=== PATIENT | male | born 1950 | race Caucasian/White ===

== ENCOUNTER 2022-02-01 06:19 | Day surgery (SDC) | payer OTHER ==
--- NOTE | 2022-01-29 11:26 | RAD REPORT ---
EXAM DESCRIPTION: RAD - Chest Pa And Lat (2 Views) - 01/29/2022 10:48 am CLINICAL HISTORY: Pre op pending heart catheterization COMPARISON: Portable 06/20/2014 TECHNIQUE: Frontal and lateral views of the chest were obtained. FINDINGS: The lungs are clear of an acute infiltrate. The interstitial pattern matches comparison. S ternotomy wires are in place. Heart size is normal and central vasculature is within normal limits. No pleural effusion or pneumothorax seen. No acute bony finding noted. No aortic abnormality. No significant change from comparison study. IMPRESSION: No acute cardiopulmonary process.
[2022-01-29 11:49] LABS: Absolute Lymphocytes (CBC) 1.4 K/uL (0.7-4.9); Hematocrit 44.6 % (39.6-49.0); Lymphocytes % 21.7 % (15.3-44.8); MCV 91.4 fL (80-100); MPV 8.4 fL (7.6-11.3); RBC Red Blood Cell Count 4.88 M/uL (4.33-5.43)
[2022-01-29 11:54] LABS: Protime INR 1.07
[2022-01-29 12:02] LABS: Potassium 3.9 mmol/L (3.5-5.1)
--- NOTE | 2022-01-30 19:13 | EKG ---
Test Date: 2022-01-29 Test Time: 10:24:20 Talent Development Specialist: MALICK MEASUREMENT RESULTS: Intervals: Rate: 41 PA: 206 QRSD: 92 QT: 472 QTc: 389 [place]: P: 64 PA: 206 QRS: 48 T: 104 INTERPRETIVE STATEMENTS: Marked sinus bradycardia with premature atrial complexes Possible Lateral infarct, age undetermined Abnormal ECG Compared to ECG 06/20/2014 14:37:23 Atrial premature complex(es) now present Myocardial infarct finding now present Electronically Signed On 01-30-22 19:10:33 EXECUTIVE SECRETARY SOCIAL WELFARE by Jose Elias Whitehead
[2022-02-01] MEDS ORDERED: HEPA 1000U/500MLS 2,000 UNIT/1,000 ML BAG IV ONE (06:26)
[2022-02-01] MEDS ORDERED: LIDOCAINE 1% 20 ML MDV ONE (06:26)
[2022-02-01] MEDS ORDERED: NA CHLORIDE 0.9% 500 ML ONE (06:52)
[2022-02-01 06:59] VITALS: TEMP 98
[2022-02-01] MEDS ORDERED: MIDAZOLAM HCL 2 MG/2 ML INJ ONE (07:05)
[2022-02-01] MEDS ORDERED: FENTANYL CITR 100 MCG/2 ML ONE (07:05)
[2022-02-01] MEDS ORDERED: NITROGLYCERIN 100 MCG/ML SYR (for cath lab use only) IV ONE (07:06)
[2022-02-01] MEDS ORDERED: NITROGLYCERIN/D5W 25 MG/250 ML BTL IV ONE (07:06)
[2022-02-01] MEDS ORDERED: ATROPINE SULF 1 MG/10 ML SYR IV ONE (07:06)
[2022-02-01] MEDS ORDERED: NA CHLORIDE 0.9% 0 ML IV ONE (07:06)
[2022-02-01] MEDS ORDERED: METHYLPREDNISOLONE 125 MG INJ ONE (07:16)
[2022-02-01] MEDS ORDERED: DIPHENHYDRAMINE 50 MG/ML VIAL ONE (07:16)
[2022-02-01 15:31] VITALS: BP 157/81; O2SAT 96
--- NOTE | 2022-02-01 19:12 | OP ---
Surgeon: Jose Elias Whitehead MD Wash Helper: Ms. Lucia Acosta. Procedures: Left heart catheterization, selective coronary arteriogram, common femoral artery angiog vera, vein graft injection, and LEOS injection. Indication: Coronary artery disease, status post CABG with unstable angina. Procedure In Detail: In the laboratory director, the patient was prepped in routine sterile fashion and draped. He was given Solu-Medrol and Benadryl because of iodine allergy. A 6-Nepalese sheath introduced in t he right common femoral artery successfully using the Seldinger technique and 10 cc of Xylocaine. An giography there was normal. Angio-Seal was used to close the case. Ros catheter left and right were used to do the heart catheterization. He was found to have 100% LAD with a patent LEOS to the L AD. He had an 80% ostial circumflex, 70% distal circumflex. There was a vein graft that was patent to the OM. His RCA was normal except for some moderate plaquing. There was a graft to the RCA that was occluded. I am not really so sure why the RCA was bypassed to start off with. The patient alexa ated the procedure well. A 6-Nepalese sheath and catheters, no complications. Blood Loss: 5 mL. Postoperative Diagnosis: Severe coronary artery disease. Plan: For medical therapy. He is already on Lipitor 80. I will increase his metoprolol to 50 b.i.d . He will stay in the hospital for 2 hours of bedrest after his Angio-Seal and he will go home today. I will see him in 2 weeks. PATEL/RICO Voice ID: [id number] Report ID: [id number]
== END 2022-02-01 09:59 | disposition home or self-care (01) ==
LOC: CCL 06:19
DX: I25.110 Atherosclerotic heart disease of native coronary artery with unstable angina pectoris (principal); I25.700 Atherosclerosis of coronary artery bypass graft(s), unspecified, with unstable angina pectoris; I25.82 Chronic total occlusion of coronary artery; I35.1 Nonrheumatic aortic (valve) insufficiency; I34.0 Nonrheumatic mitral (valve) insufficiency; I70.213 Atherosclerosis of native arteries of extremities with intermittent claudication, bilateral legs; I65.23 Occlusion and stenosis of bilateral carotid arteries; I10 Essential (primary) hypertension; E78.2 Mixed hyperlipidemia; H34.00 Transient retinal artery occlusion, unspecified eye; Z87.891 Personal history of nicotine dependence; Z79.899 Other long term (current) drug therapy; Z88.8 Allergy status to other drugs, medicaments and biological substances; Z91.041 Radiographic dye allergy status
CPT/HCPCS: 93005; 85025; 80048; 36415; 85610; 85730; 71046; 93455; C1893; C1760; G0269; J1200; J2250; J3010; J7040; J1644; J2930; J0461; J0583

== ENCOUNTER 2023-02-25 12:00 | Day surgery (SDC) | payer OTHER ==
[2023-02-23 14:27] LABS: Absolute Lymphocytes (CBC) 1.5 K/uL (0.7-4.9); Hematocrit 41.9 % (39.6-49.0); Lymphocytes % 22.3 % (15.3-44.8); MCV 90.9 fL (80-100); MPV 7.8 fL (7.6-11.3); Platelets 201 thou/uL (152-406); RBC Red Blood Cell Count 4.61 M/uL (4.33-5.43)
[2023-02-23 14:31] LABS: Protime INR 1.06
[2023-02-23 14:41] LABS: Potassium 3.6 mEq/L (3.5-5.1)
--- NOTE | 2023-02-23 14:41 | RAD REPORT ---
EXAM DESCRIPTION: RAD - Chest Pa And Lat (2 Views) - 02/23/2023 2:34 pm CLINICAL HISTORY: PRE OP LEFT AND RIGHT HEART Chest pain. COMPARISON: <Comparisons> FINDINGS: The lungs are clear. The heart is normal in size. No displaced fractures. Sternotomy. IMPRESSION: No acute or concerning finding suspected. The USPSTF recommends annual screening for lung cancer with low-dose CT (LDCT) in adults aged 50 to 8 0 years who have a 20 pack-year smoking history and currently smoke or have quit within the past 15 y ears.
[~2023-02-25 12:00] MED LIST: ATROPINE SULF 1 MG/10 ML SYR IV ONE; FENTANYL CITR 100 MCG/2 ML ONE; HEPA 1000U/500MLS 2,000 UNIT/1,000 ML BAG IV ONE; HEPARIN 10,000 UNIT/10 ML VIAL IV ONE; HEPARIN 5000 UNIT/ML 1 ML VIAL ONE; LIDOCAINE 1% 20 ML MDV ONE; MIDAZOLAM HCL 2 MG/2 ML INJ ONE; NITROGLYCERIN/D5W 50 MG/250 ML BTL IV ONE; VERAPAMIL HCL 10 MG/4 ML VIAL IV ONE
[2023-02-25] MEDS ORDERED: HEPA 1000U/500MLS 1,000 UNIT/500 ML BAG IV ONE ×2 (12:05→13:48)
[2023-02-25] MEDS ORDERED: NA CHLORIDE 0.9% 500 ML ONE (12:15)
[2023-02-25 12:44] VITALS: O2SAT 97
[2023-02-25] MEDS ORDERED: METHYLPREDNISOLONE 125 MG INJ ONE (12:45)
[2023-02-25] MEDS ORDERED: DIPHENHYDRAMINE 50 MG/ML VIAL ONE (12:45)
[2023-02-25] MEDS ORDERED: ASPIRIN 325 MG TAB ONE (12:46)
[2023-02-25] MEDS ORDERED: CLOPIDOGREL 75 MG TABLET ONE (12:46)
[2023-02-25] MEDS ORDERED: HEPARIN 10,000 UNIT/10 ML VIAL IV ONE (13:44)
--- NOTE | 2023-02-25 15:25 | EKG ---
Test Date: 2023-02-23 Test Time: 15:15:35 Wet Silk Hanger: HAFSA MEASUREMENT RESULTS: Intervals: Rate: 46 TX: 202 QRSD: 94 QT: 424 QTc: 371 [place]: P: 70 TX: 202 QRS: 3 T: 117 INTERPRETIVE STATEMENTS: Marked sinus bradycardia Lateral infarct, age undetermined Abnormal ECG Compared to ECG 01/29/2022 10:24:20 Atrial premature complex(es) no longer present Myocardial infarct finding still present Electronically Signed On 02-25-23 15:20:45 MUSEUM EXHIBIT DESIGNER by Raphael Leach
[2023-02-25 17:23] VITALS: TEMP 98
[2023-02-25 18:28] VITALS: BP 149/88
--- NOTE | 2023-02-26 02:23 | OP ---
Date of Procedure: 02/25/2023 Surgeon: ISAAC HUSTON Procedures Performed: 1.Selective coronary angiogram with bypass graft study. 2.Left heart catheterization. 3.Right heart catheterization. 4.Percutaneous coronary intervention of severe proximal saphenous vein graft to obtuse marginal. I used 3.5 x 12 mm Synergy drug-eluting stent. Indication: 1.Abnormal stress test. 2.Aortic valve stenosis. Access: 1.Right femoral artery, 6-Haitian, closed with StarClose. 2.Right IJ, 7-Haitian, closed with manual pressure. Complications: None. Bleeding: Less than 20 mL. Anesthesia: Total sedation time was 1 hour; used fentanyl and Versed. Description Of Procedure: After risks, benefits, alternatives were explained, the patient agreed to procedure and signed informed consent. The patient was brought into cardiac catheterization laborato ry, prepped and draped in sterile fashion. Then, I accessed right femoral artery using micropuncture kit, ultrasound guidance, and fluoroscopy. Placed a 6-H[place]ian [place] sheath. Next, I accessed the right IJ using ultrasound guidance and micropuncture kit, and placed 7-Haitian [place] sheath and to ok a balloon tip 7-[place]ian [place] catheter through the IJ access into the right atrium, right ventricle, pulmonary artery and wedge. Obtained waveform and pressures, and then obtained thermodilutional car diac output and then removed the [place]. Then, I took 6-H[place]ian JL4 catheter into the aortic root over a J-wire from the femoral access, engaged left main, took standard views and exchanged for 6-Haitian J R4 catheter, engaged the RCA and the SVG to OM, and the LEOS to LAD, took standard views and then rem harris the catheter. Then, gave systemic heparin to assure ACT level above 250. Throughout the proced ure, loaded with Plavix and aspirin. The patient is already taking them, and then I took a AL1 guide to the aortic root, engaged the SVG graft to the OM and then Runthrough wire into the graft and then I placed a 3.5 x 12 mm Synergy drug-eluting stent across the area of stenosis with excellent results and reducing the stenosis to 0%, during which time the patient received heparin to assure ACT level above 250 throughout the procedure. Final angiogram was satisfactory. Removed the guide and the she ath, and used StarClose for closure of the groin and manual pressure of the right IJ. The patient wa s sent to recovery in stable condition. Findings: 1.Left main large and normal. 2.LAD: Ostially occluded 100%. 3.Left circumflex: Ostial 80% stenosis, OM has 40%, and the circumflex itself has multiple areas of 50% to 60% stenosis. 4.RCA is a small artery, diffusely diseased, ranging between 30% to 40% from the proximal to the dis laila portion. Bypass Grafts: 1.Widely patent LEOS to LAD. 2.SVG graft to the OM has proximal 99% stenosis, status post successful PCI as above. 3.LVEDP was elevated at 29 mmHg. Right Heart Catheterization Numbers: RA pressure was 11. RV pressure was 43/8, mean 13. PA pressur e was 38/13, mean of 26. Pulmonary wedge pressure was 15 and the average cardiac output was 8.6. Me an gradient across the aortic valve was 23 mmHg and valve area was 1.7 cm2. Conclusion: 1.Severe solomon coronary artery disease with patent LEOS to LAD and diseased SVG graft to OM, status post successful PCI of the SVG graft to OM. 2.Elevated filling pressures. 3.Moderate aortic valve stenosis. Plan: Aspirin, Plavix, high-dose statin, and diuretics. Follow up with me in the office in 1 to 2 w eeks. SR/MODL Voice ID: [id number] Report ID: [id number]
== END 2023-02-25 18:25 | disposition home or self-care (01) ==
LOC: CCL 12:00
PROVIDERS: ATTEND Internal Medicine
DX: I25.810 Atherosclerosis of coronary artery bypass graft(s) without angina pectoris (principal); I25.10 Atherosclerotic heart disease of native coronary artery without angina pectoris; I25.82 Chronic total occlusion of coronary artery; I35.0 Nonrheumatic aortic (valve) stenosis; I65.23 Occlusion and stenosis of bilateral carotid arteries; I10 Essential (primary) hypertension; E78.2 Mixed hyperlipidemia; Z87.891 Personal history of nicotine dependence; Z79.899 Other long term (current) drug therapy; Z88.5 Allergy status to narcotic agent
CPT/HCPCS: 93005; 85025; 80048; 36415; 83721; 85610; 85347 ×4; 85730; 71046; 93461; 76937; C1893; Q9966; C1887; C1725; C9600; J2001; J1200; J0461; J2250; J3010; J2930; J7040; 93460; 99152; 99153; J1644

== ENCOUNTER 2024-04-09 11:32 | Day surgery (SDC) | payer OTHER ==
[2024-04-06 15:31] LABS: Absolute Eosinophils 0.4 K/uL (0-0.5); Absolute Lymphocytes (CBC) 1.6 K/uL (0.7-4.9); Absolute Monocytes 0.6 K/uL (0.1-1.3); Absolute Neutrophil 4.3 K/uL (1.8-8.0); Basophils % 0.5 % (0-1.3); Eosinophils % 5.8 % (0-4.4); Hematocrit 43.3 % (39.6-49.0); Lymphocytes % 22.9 % (15.3-44.8); MCH 31.7 pg (27.0-35.0); MCHC 34.6 g/dL (32.0-36.0); MCV 91.7 fL (80-100); MPV 8.2 fL (7.6-11.3); Monocytes % 8.3 % (3.3-12.3); Neutrophils % 62.5 % (41.7-73.7); Platelets 221 thou/uL (152-406); RBC Red Blood Cell Count 4.72 M/uL (4.33-5.43)
[2024-04-06 15:39] LABS: PT Prothrombin Time 11.2 SECONDS (9.4-12.5); Protime INR 1.07
[2024-04-06 15:40] LABS: PTT, Activated Partial Thromb 34.9 SECONDS (24.3-36.9)
[2024-04-06 15:45] LABS: Anion Gap 9.3 mEq/L (5.0-15.0); Potassium 4.3 mEq/L (3.5-5.1)
--- NOTE | 2024-04-06 15:48 | RAD REPORT ---
Procedure: Chest Pa And Lat (2 Views) HISTORY: Preop for cardiac catheterization COMPARISON: 2022 FINDINGS: The lungs appear clear of acute infiltrate. No significant pleural effusion noted. The heart is normal size. Post surgical changes involve the chest IMPRESSION: No acute abnormality is displayed.
[2024-04-09] MEDS ORDERED: NA CHLORIDE 0.9% 500 ML ONE ×2 (11:38→13:29)
[2024-04-09] MEDS ORDERED: HEPA 1000U/500MLS 2,000 UNIT/1,000 ML BAG IV ONE (13:28)
[2024-04-09] MEDS ORDERED: FENTANYL CITR 100 MCG/2 ML ONE (13:29)
[2024-04-09] MEDS ORDERED: LIDOCAINE 1% 20 ML MDV ONE (13:29)
[2024-04-09] MEDS ORDERED: MIDAZOLAM HCL 2 MG/2 ML INJ ONE (13:29)
[2024-04-09] MEDS ORDERED: HEPARIN 10,000 UNIT/10 ML VIAL IV ONE (13:30)
[2024-04-09] MEDS ORDERED: ATROPINE SULF 1 MG/10 ML SYR IV ONE (13:31)
[2024-04-09] MEDS ORDERED: DIPHENHYDRAMINE 50 MG/ML VIAL ONE (13:32)
[2024-04-09] MEDS ORDERED: METHYLPREDNISOLONE 125 MG INJ ONE (13:32)
[2024-04-09 16:26] VITALS: TEMP 99
[2024-04-09 17:28] VITALS: BP 161/93; O2SAT 96
--- NOTE | 2024-04-10 02:43 | OP ---
Date of Procedure: 04/09/2024 Surgeon: ISAAC HUSTON Procedures Performed: 1.Selective coronary angiogram with bypass graft study. 2.Left heart catheterization. 3.Right heart catheterization. Indications: 1.Chest pain with abnormal stress test suggestive of unstable angina. 2.Aortic valve stenosis evaluation. Access: 1.Right IJ 7-[place] Islander, closed with manual pressure. 2.Right common femoral artery 6-[place] Island[place], closed with Mynx closure device. Complications: None. Bleeding: Less than 50 mL. Anesthesia: Total sedation time was 1 hour, used fentanyl and Versed. Description Of Procedure: After risks, benefits, and alternatives were explained, the patient agreed to procedure and signed informed consent. The patient was brought into cardiac catheterization labo [facility], prepped and draped in usual sterile fashion. Then, I accessed right common femoral artery us ing micropuncture kit, ultrasound guidance, fluoroscopy, placed 6-[place] Island[place] sheath and then acc essed right IJ using micropuncture kit, ultrasound guidance, placed 7-[place] Island[place] sheath and took a 7-[place] balloon-tipped [place] catheter through the IJ access into the right atrium, right ventricle , pulmonary artery and wedge, obtained waveform and pressure, and then obtained cardiac output by the rmodilutional method, and then removed the [place] catheter and then took a 6-[place] Island[place] JL4 catheter over J -wire through the groin access into the aortic root, engaged left main, took standard views and excha nged for 6-[place] Island[place] JR4 catheter and engaged the RCA and the SVG graft to OM and took standard views an d then the LEOS to LAD and took standard views and then exchanged for a 4-[place] Island[place] AL1 catheter with a straight wire across the aortic valve and then exchanged for a [place] catheter and did simultaneous measurements of the LV and the aorta pressures and pullback did not record any internal gradient. T hen, I removed the catheter and the sheath, and 6-[place] Islander Mynx closure device was used to close the gr oin access with good hemostasis and then the IJ access was removed and manual pressure was applied fo r closure with good hemostasis. Findings: Coronary angiogram: 1.Left main is normal. 2.LAD; proximal RADON INSPECTOR. 3.Left circumflex; proximal 80% and then at the very distal portion, if the vessel becomes very smal l, there is 60% to 70% focal stenosis. 4.RCA; it is moderate-size vessel, proximal 50%, mid 50%, distal 40% to 50% stenosis and then lumina l irregularities of the PDA and PLB. Bypass graft study: 1.Patent SVG graft to OM with a stent in the proximal segment that has 20% to 30% ISR. 2.Patent LEOS to LAD, widely patent. 3.LVEDP elevated at 19 mmHg. Right heart catheterization numbers: 1.RA pressure is 9, RV pressure was 50/5, mean of 12, PA pressure was 50/18, mean of 35, and pulmona ry wedge pressure was 18 mmHg and LVEDP was 19 mmHg. Conclusions: 1.Severe barrow coronary artery disease with widely patent SVG graft to OM and LEOS to LAD. The mirta nt of the OM graft has 20% to 30% ISR and the RCA has moderate disease. 2.Moderate aortic valve stenosis with the cardiac output was 9.7 L/minute and the gradient was 33 mm Hg across the aortic valve suggestive of moderate aortic valve stenosis. Plan: Continue medical management for now. Reassess the aortic valve with an echo in 6 months. SR/MODL Voice ID: [id number] Report ID: [id number]
--- NOTE | 2024-04-11 12:46 | EKG ---
Test Date: 2024-04-06 Test Time: 16:14:13 Circular Saw Filer: MALICK MEASUREMENT RESULTS: Intervals: Rate: 57 NM: 194 QRSD: 100 QT: 438 QTc: 426 [employer]: P: 75 NM: 194 QRS: 43 T: 87 INTERPRETIVE STATEMENTS: Sinus bradycardia with marked sinus arrhythmia Otherwise normal ECG Compared to ECG 02/23/2023 15:15:35 Myocardial infarct finding no longer present Electronically Signed On 04-11-24 12:37:17 INSTRUMENT PANEL ASSEMBLER by Ant Ramirez
== END 2024-04-09 17:45 | disposition home or self-care (01) ==
LOC: CCL 11:32
PROVIDERS: ATTEND Internal Medicine
DX: I25.110 Atherosclerotic heart disease of native coronary artery with unstable angina pectoris (principal); I25.82 Chronic total occlusion of coronary artery; T82.855A Stenosis of coronary artery stent, initial encounter; I35.0 Nonrheumatic aortic (valve) stenosis; I65.23 Occlusion and stenosis of bilateral carotid arteries; I70.203 Unspecified atherosclerosis of native arteries of extremities, bilateral legs; I10 Essential (primary) hypertension; E78.5 Hyperlipidemia, unspecified; Z95.1 Presence of aortocoronary bypass graft; Z87.891 Personal history of nicotine dependence; Z79.02 Long term (current) use of antithrombotics/antiplatelets; Z79.82 Long term (current) use of aspirin; Z79.899 Other long term (current) drug therapy; Z91.041 Radiographic dye allergy status; Z91.013 Allergy to seafood
CPT/HCPCS: 36415; 71046; 76937; 80048; 85025; 85610; 85730; 93005; 93461; 99152; 99153; C1760; C1887; C1893; J0461; J1200; J2003; J2250; J2919; J3010; J7040; Q9967